=== PATIENT | female | born 1985 | race African-American/Black ===

== ENCOUNTER 2022-11-19 17:15 | Emergency (ER) | payer SELFPAY ==
--- NOTE | 2022-11-19 18:19 | RAD REPORT ---
EXAM DESCRIPTION: RAD - Knee Left 3 View - 11/19/2022 6:07 pm CLINICAL HISTORY: Left knee pain FINDINGS: Small joint effusion is suspected Cortical irregularity medial tibial plateau presumably is chronic. No acute fracture or dislocation is seen. If patient continues have symptoms to suggest an occult fracture, ligamentous or meniscal injury then MRI would be recommended
[2022-11-19] MEDS ORDERED: KETOROLAC 30 MG/ML INJ ONE (19:04)
[2022-11-19 19:47] VITALS: BP 182/93; TEMP 97.4; O2SAT 100
--- NOTE | 2022-11-19 21:22 | EDPHYS ---
Physician Documentation [facility] Name: Kindra Blair Age: 37 yrs Sex: Female : 1985 Arrival Date: 11/19/2022 Time: 17:15 Bed 11 Private MD: ED Physician Luis Palacios HPI: 11/19 17:36 This 37 yrs old Black Female presents to ER via Ambulatory with complaints of Knee kb Pain, Knee Swelling. 17:36 The patient presents with pain, swelling, tenderness. Context: The problem was kb sustained at home, resulted from an unknown cause, the patient can fully bear weight, the patient is able to ambulate. 18:05 The complaints affect the left knee. Onset: The symptoms/episode began/occurred 7 kb month(s) ago. Modifying factors: The symptoms are alleviated by nothing. the symptoms are aggravated by weight bearing. Associated signs and symptoms: Pertinent positives: swelling, Pertinent negatives calf tenderness, fever, nausea, numbness, rash, tingling, vomiting, warmth, weakness. Treatment prior to arrival includes: no previous treatment. Severity of symptoms: At their worst the symptoms were moderate, in the emergency department the symptoms are unchanged. The patient has not experienced similar symptoms in the past. The patient has not recently seen a physician. Pt reports left knee pain and swelling that has been intermittent since April (7 months ago). Denies injury/trauma. . Historical: - Allergies: 17:32 No Known Allergies; hb - Home Meds: 17:32 None [Active]; hb - PMHx: 17:32 None; hb - PSHx: 17:32 Hip - bilateral; Wrist - Right; section; hb - Immunization history:: Adult Immunizations up to date. - Social history:: Smoking status: Patient reports the use of cigarette tobacco products, smokes one pack cigarettes per day. ROS: 17:34 Constitutional: Negative for fever, chills, and weight loss. kb 17:34 MS/extremity: Positive for pain, swelling, tenderness, of the left knee. 17:34 All other systems are negative. Exam: 17:34 Constitutional: This is a well developed, well nourished patient who is awake, alert, kb and in no acute distress. Head/Face: Normocephalic, atraumatic. ENT: Moist Mucous membranes Cardiovascular: Regular rate and rhythm with a normal S1 and S2. No gallops, murmurs, or rubs. No pulse deficits. Respiratory: Respirations even and unlabored. No increased work of breathing. Talking in full sentences Abdomen/GI: Soft, non-tender. No distention Skin: Warm, dry with normal turgor. Normal color. Neuro: Awake and alert, GCS 15, oriented to person, place, time, and situation. Moves all extremities. Normal gait. Psych: Awake, alert, with orientation to person, place and time. Behavior, mood, and affect are within normal limits. 17:34 Musculoskeletal/extremity: Extremities: grossly normal except: noted in the left knee: pain, swelling, tenderness, ROM: intact in all extremities, Circulation is intact in all extremities. Sensation intact. Weight bearing: able to fully bear weight. Vital Signs: 17:33 BP 182 / 93; Pulse 80; Resp 20; Temp 97.4; Pulse Ox 100% on R/A; Weight 176.45 kg; hb Height 5 ft. 8 in. ; Pain 8/10; 17:33 Body Mass Index 59.15 (176.45 kg, 172.72 cm) hb 17:33 Pain Scale: Adult hb MDM: 17:30 Patient medically screened. kb 17:34 Data reviewed: vital signs, nurses notes. kb 17:35 Differential diagnosis: closed fracture, contusion, strain, arthritis. kb 18:54 Independent interpretation of the following test(s) in the Emergency Department X-Ray: kb My interpretation is left knee x-ray reviewed by me - no acute fracture. Counseling: I had a detailed discussion with the patient and/or guardian regarding: the historical points, exam findings, and any diagnostic results supporting the discharge/admit diagnosis, radiology results, the need for outpatient follow up, a design sales consultant, to return to the emergency department if symptoms worsen or persist or if there are any questions or concerns that arise at home. 11/19 17:33 Order name: Knee Left 3 View XRAY 11/19 18:55 Order name: Austin Wrap; Complete Time: 19:12 kb Administered Medications: 19:12 Drug: Ketorolac IM 30 mg Route: IM; Site: right deltoid; aa9 Disposition Summary: 11/19/22 18:55 Discharge Ordered Location: Home kb Condition: Stable kb Diagnosis - Pain in left knee kb Followup: kb - With: Emergency Department - When: As needed - Reason: Worsening of condition Followup: kb - With: Private Physician - When: 2 - 3 days - Reason: Recheck today's complaints, Continuance of care, Re-evaluation by your physician Discharge Instructions: - Discharge Summary Sheet kb - Acute Knee Pain, Adult, [id number] kb Forms: - Medication Reconciliation Form kb - Thank You Letter kb - Antibiotic Education kb - Prescription Opioid Use kb - Work release form aa9 Prescriptions: - Diclofenac Sodium 75 mg Oral tablet,delayed release (DR/EC) - take 1 tablet by ORAL route 2 times per day As needed; 30 tablet; Refills: 0, kb Product Selection Permitted - orphenadrine citrate 100 mg Oral Tablet Sustained Release - take 1 tablet by ORAL route 2 times per day As needed; 20 tablet; Refills: 0, kb Product Selection Permitted Signatures: Dispatcher [employer] EDKrupa Rivera, MANAGER PROGRAMMING-C MANAGER PROGRAMMING-Jennifer Sparrow, RN RN Linda Pritchett RN RN [id number] Gisele Ford, RN RN aa9
--- NOTE | 2022-11-19 21:22 | ER ---
Nurse's Notes [facility] Name: Kindra Blair Age: 37 yrs Sex: Female : 1985 Arrival Date: 11/19/2022 Time: 17:15 Bed 11 Private MD: Diagnosis: Pain in left knee Presentation: 11/19 17:30 Chief complaint: Left knee pain and swelling x 6 months. Denies injury. Coronavirus hb screen: At this time, the client does not indicate any symptoms associated with coronavirus-19. Ebola Screen: No symptoms or risks identified at this time. Initial Sepsis Screen: Does the patient meet any 2 criteria? No. Patient's initial sepsis screen is negative. Does the patient have a suspected source of infection? No. Patient's initial sepsis screen is negative. Risk Assessment: Do you want to hurt yourself or someone else? Patient reports no desire to harm self or others. Onset of symptoms was April 2023. 17:30 Method Of Arrival: Ambulatory hb 17:30 Acuity: EDSON 4 hb Triage Assessment: 17:34 General: Appears in no apparent distress. Behavior is calm, cooperative. Pain: Pain hb currently is 8 out of 10 on a pain scale. at worst was 10 out of 10 on a pain scale. Neuro: Level of Consciousness is awake, alert, obeys commands, Oriented to person, place, time, situation. Cardiovascular: Patient's skin is warm and dry. Respiratory: Respiratory effort is even, unlabored, Respiratory pattern is regular, symmetrical. Historical: - Allergies: 17:32 No Known Allergies; hb - Home Meds: 17:32 None [Active]; hb - PMHx: 17:32 None; hb - PSHx: 17:32 Hip - bilateral; Wrist - Right; section; hb - Immunization history:: Adult Immunizations up to date. - Social history:: Smoking status: Patient reports the use of cigarette tobacco products, smokes one pack cigarettes per day. Screenin:14 [facility] ED Fall Risk Assessment (Adult) History of falling in the last 3 months, aa9 including since admission No falls in past 3 months (0 pts) Confusion or Disorientation No (0 pts) Intoxicated or Sedated No (0 pts) Impaired Gait Yes (1 pt) Mobility Assist Device Used Yes (1 pt) Altered Elimination No (0 pt) Score/Fall Risk Level 3 or more points = High Risk Oriented to surroundings, Maintained a safe environment. Abuse screen: Denies threats or abuse. Denies injuries from another. Nutritional screening: No deficits noted. Tuberculosis screening: No symptoms or risk factors identified. Assessment: 19:13 General: Appears in no apparent distress. comfortable, obese, Behavior is calm, aa9 cooperative. Pain: Complains of pain in posterior aspect of left knee and left knee. Neuro: Level of Consciousness is awake, alert, obeys commands, Oriented to person, place, time, situation. Cardiovascular: Patient's skin is warm and dry. Respiratory: Airway is patent Respiratory effort is even, unlabored. Vital Signs: 17:33 BP 182 / 93; Pulse 80; Resp 20; Temp 97.4; Pulse Ox 100% on R/A; Weight 176.45 kg; hb Height 5 ft. 8 in. ; Pain 8/10; 17:33 Body Mass Index 59.15 (176.45 kg, 172.72 cm) hb 17:33 Pain Scale: Adult hb ED Course: 17:15 Patient arrived in ED. rg4 17:20 Krupa Shah FNP-C is [facility]. kb 17:20 Luis Palacios MD is Attending Physician. kb 17:32 Triage completed. hb 17:34 Arm band placed on. hb 18:09 Knee Left 3 View XRAY In Process Unspecified. EDMS 19:13 Patient has correct armband on for positive identification. Call light in reach. aa9 19:13 No provider procedures requiring assistance completed. Patient did not have IV access aa9 during this emergency room visit. Administered Medications: 19:12 Drug: Ketorolac IM 30 mg Route: IM; Site: right deltoid; aa9 Medication: 19:14 VIS not applicable for this client. aa9 Outcome: 18:55 Discharge ordered by . kb 19:14 Discharged to home via wheelchair. aa9 19:14 Condition: stable 19:14 Discharge instructions given to patient, Instructed on discharge instructions, follow up and referral plans. medication usage, Demonstrated understanding of instructions, follow-up care, medications, Prescriptions given X 2. 19:16 Patient left the ED. aa9 Signatures: Dispatcher [employer] EDMS Krupa Shah FNP-C FNP-Ckb Baxter, Heather, RN RN Emily Fleming rg4 Gisele Ford, RN RN aa9
== END 2022-11-19 19:16 | disposition home or self-care (01) ==
LOC: ER 17:15
DX: M25.562 Pain in left knee (principal)
CPT/HCPCS: 96372; 99283